=== PATIENT | male | born 1985 | race Asian ===

== ENCOUNTER 2020-08-04 15:07 | Outpatient (REF) | payer OTHER, SELFPAY ==
[2020-08-04 16:39] LABS: Syphilis Screen Nonreactive (Nonreactive)
[2020-08-05 05:18] LABS: Rubella IgG Antibody >33.00 Index
[2020-08-06 14:11] LABS: C. trachomatis RNA TMA NOT DETECTED (NOT DETECTED); N. gonorrhoeae RNA TMA NOT DETECTED (NOT DETECTED)
[2020-08-07 14:43] LABS: TS Negative Control Passed; TS Panel A 0; TS Panel B 0; TS Positive Control Passed; TSpotTB Negative (SeeBelow)
== END 2020-08-04 15:08 | disposition home or self-care (01) ==
LOC: HO.LAB 15:07
PROVIDERS: Visit Provider Internal Medicine
DX: Z00.00 Encounter for general adult medical examination without abnormal findings (principal)
CPT/HCPCS: 36415; 86481; 86735; 86762; 86765; 86780; 87491; 87591